=== PATIENT | male | born 1995 | race Caucasian/White ===

== ENCOUNTER 2017-09-21 16:31 | Emergency (ER) | payer OTHER ==
[~2017-09-21] VITALS: Ht 167.6 cm; Wt 58.3 kg
[2017-09-21 16:33] VITALS: BP 116/57; PULSE 74; RESP 16; TEMP 97.5; O2SAT 98
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
[2017-09-21] MEDS ORDERED: CYCL10TA PO (18:22)
== END 2017-09-21 18:32 | disposition home or self-care (01) ==
LOC: PHEFT 16:31
DX: S29.012A Strain of muscle and tendon of back wall of thorax, initial encounter (principal); M54.2 Cervicalgia; V49.49XA Driver injured in collision with other motor vehicles in traffic accident, initial encounter; Z72.0 Tobacco use
CPT/HCPCS: 72125